=== PATIENT | male | born 1945 | race Caucasian/White ===

== ENCOUNTER 2018-04-01 10:14 | Outpatient (CLI) | payer MEDICARE ==
--- NOTE | 2018-04-01 14:12 | XRAY Report ---
Reason: PAIN IN RIGHT HIP Procedure Date: 04/01/2018 Accession Number: [id number] / [id number] Procedure: XR - Hip w/Pelvis 2-3V RT CPT Code: FULL RESULT: EXAM: RIGHT HIP RADIOGRAPHY EXAM DATE: 04/01/2018 11:24 AM. CLINICAL HISTORY: Pain in right hip. COMPARISON: None. TECHNIQUE: AP pelvis and frog-leg views of each hip. FINDINGS: Bones: No fractures or bone lesion. Joints: End-stage degenerative changes including subchondral cyst formation and sclerosis with [id number] contact is seen in the right hip joint. Moderate loss of joint space with some sclerosis more superiorly is also seen in the left hip joint. There is no subluxation. Soft Tissues: Normal. No soft tissue swelling. 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 RADIA
== END 2018-04-01 10:15 | disposition home or self-care (01) ==
LOC: DI 10:14
PROVIDERS: ATTEND Internal Medicine
DX: M16.11 Unilateral primary osteoarthritis, right hip (principal)

== ENCOUNTER 2020-09-01 15:11 | Outpatient (CLI) | payer MEDICARE ==
[2020-09-01 19:53] LABS: BASOPHILS % (AUTO) 0.5 %; EOSINOPHILS # (AUTO) 0.1 10^3/uL (0.0-0.7); EOSINOPHILS % (AUTO) 2.2 %; HCT - HEMATOCRIT 45.5 % (42.0-52.0); HGB - HEMOGLOBIN 14.9 g/dL (14.0-18.0); LYMPHOCYTES # (AUTO) 1.7 10^3/uL (1.5-3.5); LYMPHOCYTES % (AUTO) 29.7 %; MEAN CORPUSCULAR HEMOGLOBIN 31.8 pg (27.0-31.0); MEAN CORPUSCULAR HGB CONC 32.7 g/dL (32.0-36.0); MEAN CORPUSCULAR VOLUME 97.2 fL (80.0-94.0); MEAN PLATELET VOLUME 9.2 fL (7.4-11.4); MONOCYTES # (AUTO) 0.6 10^3/uL (0.0-1.0); MONOCYTES % (AUTO) 9.6 %; NEUTROPHILS # (AUTO) 3.3 10^3/uL (1.5-6.6); NEUTROPHILS % (AUTO) 57.3 %; PLT - PLATELET COUNT 215 10^3/uL (130-450); RED BLOOD COUNT 4.68 10^6/uL (4.70-6.10); RED CELL DISTRIBUTION WIDTH 12.6 % (12.0-15.0); WHITE BLOOD COUNT 5.8 x10^3/uL (4.8-10.8)
[2020-09-01 20:09] LABS: ALBUMIN 4.2 g/dL (3.2-5.5); CALCIUM 9.4 mg/dL (8.5-10.3); CREATININE 0.8 mg/dL (0.6-1.2); POTASSIUM 4.3 mmol/L (3.5-5.0)
[2020-09-01 20:38] LABS: ESTIMATED AVERAGE GLUCOSE 148 mg/dL (70-100); HEMOGLOBIN A1c% 6.8 % (4.27-6.07)
== END 2020-09-01 15:12 | disposition home or self-care (01) ==
LOC: LAB.S 15:11
PROVIDERS: ATTEND Orthopaedic Surgery
DX: Z01.812 Encounter for preprocedural laboratory examination (principal)
CPT/HCPCS: 36415; 80048; 82040; 83036; 84134; 85025

== ENCOUNTER 2022-12-19 09:35 | Outpatient (CLI) | payer MEDICARE ==
--- NOTE | 2022-12-19 11:45 | XRAY Report ---
PROCEDURE: Lumbar Spine 2 View INDICATIONS: LOW BACK PAIN TECHNIQUE: 3 views of the lumbar spine were acquired. COMPARISON: None. FINDINGS: Bones: 5 cac-saz-oahffui vertebrae are present. There is normal bony alignment. No vertebral body compression fractures. No suspicious bony lesions. There is mild diffuse degenerative disc disease noted all levels throughout the patient's lumbar spine. Diffuse osteopenia is present. Soft tissues: Overlying bowel gas pattern is normal. No suspicious soft tissue calcifications. Ath erosclerotic vascular calcifications are noted within the abdominal aorta. IMPRESSION: 1. No evidence for acute osseous abnormality involving the lumbar spine. 2. Mild diffuse degenerative disc disease noted at all levels. 3. Diffuse osteopenia. 4. Atherosclerotic vascular calcifications. Reviewed by: Gonzalo Monteiro MD on 12/19/2022 11:43 AM [facility] Approved by: Gonzalo Monteiro MD on 12/19/2022 11:43 AM PST Station ID: [id number]
--- NOTE | 2022-12-19 11:45 | XRAY Report ---
PROCEDURE: Sacrum/Coccyx INDICATIONS: LOW BACK PAIN TECHNIQUE: 2 views of the sacrum and coccyx acquired. COMPARISON: None. FINDINGS: Bones: No fractures or dislocations. No suspicious bony lesions. There is diffuse osteopenia prese nt. Soft tissues: Visualized bowel gas pattern is normal. No suspicious soft tissue densities. IMPRESSION: No acute bony abnormality. Diffuse osteopenia. Reviewed by: Gonzalo Monteiro MD on 12/19/2022 11:44 AM PST Approved by: Gonzalo Monteiro MD on 12/19/2022 11:44 AM PST Station ID: [id number]
== END 2022-12-19 09:36 | disposition home or self-care (01) ==
LOC: DI.S 09:35
PROVIDERS: ATTEND Nurse Practitioner Family
DX: M85.89 Other specified disorders of bone density and structure, multiple sites (principal); M51.36 Other intervertebral disc degeneration, lumbar region; I70.0 Atherosclerosis of aorta

== ENCOUNTER 2022-12-28 08:00 | Outpatient (CLI) | payer MEDICARE | END 2022-12-28 23:59 | disposition home or self-care (01) | LOC: LAB.S 08:00 | PROVIDERS: ATTEND Emergency Medicine | DX: H53.8 Other visual disturbances (principal); R42 Dizziness and giddiness | CPT/HCPCS: 82962 ==

== ENCOUNTER 2022-12-28 19:46 | Outpatient (CLI) | payer MEDICARE | END 2022-12-28 19:47 | disposition critical access hospital (66) | LOC: EMS 19:46 | DX: I95.1 Orthostatic hypotension (principal) | CPT/HCPCS: A0425; A0427 ==

== ENCOUNTER 2022-12-28 20:21 | Emergency (ER) | payer MEDICARE ==
[2022-12-28] MEDS ORDERED: SODIUM CHLORIDE 0.9% 1,000 ML IV STA (20:32)
--- NOTE | 2022-12-28 20:35 | ED Physician Documentation ---
PD HPI SYNCOPE - Stated complaint Stated Complaint: DIZZINESS - Chief complaint Chief Complaint: Neuro - History obtained from History obtained from: Patient, EMS - Additional information Additional information: 77-year-old male with history of jig-vsdvlyx-kprfdexbe diabetes, hypertension, A-fib on Xarelto presents by EMS from the walk-in clinic for dizziness. Patient has a history of orthostatic hypotension. He states that he was getting out of his chair to fix the VCR when he felt very off balance and lightheaded, similar to his previous orthostatic events. He measured his blood pressure at home and the machine was having difficulty measuring her blood pressure, so he decided to go to the walk-in clinic. At the walk-in clinic patient had positive orthostatic vital signs, but because of the change in blood pressure and heart rate 911 was called for evaluation. Patient was started on normal saline and transferred for further evaluation. On arrival patient resting comfortably, denies complaints, states he feels back to normal. Last saw cardiology 1 year ago for his orthostatic issues. Reports unremarkable workup through cardiology Review of Systems Constitutional: denies: Fever, Chills GI: denies: Abdominal Pain, Nausea, Vomiting Neurologic: reports: Near syncope. denies: Generalized weakness, Focal weakness, Difficulty speaking, Syncope, Seizure, Confused, Headache, Head injury, LOC PD PAST MEDICAL HISTORY - Past Medical History Cardiovascular: Hypertension, Coronary artery disease, Deep vein thrombosis, Pulmonary embolism, Valve disorder Respiratory: Shortness of breath Endocrine/Autoimmune: Type 2 diabetes : Benign prostate hypertrophy Musculoskeletal: Osteoarthritis, Chronic back pain - Past Surgical History Ortho: Hip replacement, Spine surgery - Present Medications Home Medications: Ambulatory Orders Medication Instructions Recorded Confirmed Ascorbic Acid [Vitamin C] 2,000 mg PO DAILY 05/29/22 12/28/22 Atorvastatin [Lipitor] 20 mg PO HS 05/29/22 12/28/22 Cholecalciferol (Vitamin D3) 125 mcg PO DAILY 05/29/22 12/28/22 [D3-5000] Cinnamon Bark Extract [Cinnamon 2,000 mg PO DAILY 05/29/22 12/28/22 Extract] Cyanocobalamin (Vitamin B-12) 1,000 mcg PO DAILY 05/29/22 12/28/22 [Vitamin B-12] Empagliflozin [Jardiance] 10 mg PO DAILY 05/29/22 12/28/22 Losartan Potassium 25 mg PO DAILY 05/29/22 12/28/22 Magnesium Oxide [Magnesium] 500 mg PO DAILY 05/29/22 12/28/22 Multivitamin 1 each PO DAILY 05/29/22 12/28/22 Rivaroxaban [Xarelto] 20 mg PO DAILY 05/29/22 12/28/22 Tamsulosin [Flomax] 0.4 mg PO DAILY 05/29/22 12/28/22 Metoprolol Succinate [Kapspargo 25 mg PO DAILY 12/28/22 12/28/22 Sprinkle] - Allergies Allergies/Adverse Reactions: Allergies Allergy/AdvReac Type Severity Reaction Status Date / Time metformin AdvReac dyspnea Verified 12/28/22 20:41 PD ED PE NORMAL - Vitals Vital signs reviewed: Yes - General General: Alert and oriented X 3, No acute distress, Well developed/nourished - HEENT HEENT: Atraumatic - Neck Neck: Supple, no meningeal sign - Cardiac Cardiac: No murmur, Strong equal pulses, Other (irregularly irregular) - Respiratory Respiratory: No respiratory distress, Clear bilaterally - Abdomen Abdomen: Soft, Non tender, Non distended - Derm Derm: Normal color, Warm and dry, No rash - Extremities Extremities: No deformity, No tenderness to palpate, Normal ROM s pain, No edema - Neuro Neuro: Alert and oriented X 3, [employer] 2-12 intact, No motor deficit, Normal speech - Psych Psych: Normal mood, Normal affect Results - Vitals Vitals: Vital Signs - 24 hr 12/28/22 12/28/22 20:34 22:15 Temperature 36.3 C L 36.7 C Heart Rate 82 68 Respiratory 15 14 Rate Blood Pressure 138/73 H 122/81 H O2 Saturation 98 95 Oxygen O2 Source Room air - Labs Labs: Laboratory Tests 12/28/22 12/28/22 12/28/22 20:36 20:36 20:36 WBC 6.6 RBC 4.65 L Hgb 14.9 Hct 45.4 MCV 97.6 H MCH 32.0 H MCHC 32.8 RDW 13.2 Plt Count 157 MPV 9.1 Neut # (Auto) 4.9 Lymph # (Auto) 1.0 L [place] # (Auto) 0.5 Eos # (Auto) 0.1 Baso # (Auto) 0.0 Absolute Nucleated RBC 0.00 Nucleated RBC % 0.0 PT 15.5 H INR 1.5 H Sodium 138 Potassium 4.2 Chloride 106 Carbon Dioxide 27 Anion Gap 5.0 L BUN 22 H Creatinine 0.9 Estimated GFR (MDRD) 82 L Glucose 124 H Calcium 9.3 Total Bilirubin 0.4 AST 17 ALT 17 Alkaline Phosphatase 103 Troponin I High Sens Total Protein 6.5 Albumin 4.0 Globulin 2.5 Albumin/Globulin Ratio 1.6 12/28/22 20:36 WBC RBC Hgb Hct MCV MCH MCHC RDW Plt Count MPV Neut # (Auto) Lymph # (Auto) [place] # (Auto) Eos # (Auto) Baso # (Auto) Absolute Nucleated RBC Nucleated RBC % PT INR Sodium Potassium Chloride Carbon Dioxide Anion Gap BUN Creatinine Estimated GFR (MDRD) Glucose Calcium Total Bilirubin AST ALT Alkaline Phosphatase Troponin I High Sens 11.1 Total Protein Albumin Globulin Albumin/Globulin Ratio PD Medical Decision Making - ED course Complexity details: reviewed old records, reviewed results, re-evaluated patient, considered differential, d/w patient, d/w family ED course: Episode of near syncope earlier this evening after getting out of his chair. Patient has longstanding history of these episodes, however tonight and lasted longer than usual. He currently feels back to his baseline, is hemodynamically stable, no acute distress. Laboratory work and imaging is reviewed, unremarkable. EKG shows no concerning findings. CXR unremarkable. Patient has remained asymptomatic since his stay in the department, he has received a liter of IV fluids and states that he is ready to go home. I recommended that the patient reach out to his repair technician again for possible reevaluation, he states has been at least 1 year since his last cardiology evaluation for his orthostatic symptoms.Patient and expressed understanding of the plan and are in agreement this time. All questions answered at the time of discharge. Departure - Departure Disposition: 01 Home, Self Care Clinical Impression: Dizziness Condition: Stable Instructions: ED Hypotension Orthostatic Forms: PCP List Discharge Date/Time: 12/28/22 22:20
[2022-12-28 20:49] LABS: BASOPHILS % (AUTO) 0.3 %; EOSINOPHILS # (AUTO) 0.1 10^3/uL (0.0-0.7); EOSINOPHILS % (AUTO) 1.7 %; HCT - HEMATOCRIT 45.4 % (42.0-52.0); HGB - HEMOGLOBIN 14.9 g/dL (14.0-18.0); LYMPHOCYTES % (AUTO) 15.6 %; MEAN CORPUSCULAR HGB CONC 32.8 g/dL (32.0-36.0); MEAN CORPUSCULAR VOLUME 97.6 fL (80.0-94.0); MEAN PLATELET VOLUME 9.1 fL (7.4-11.4); MONOCYTES # (AUTO) 0.5 10^3/uL (0.0-1.0); MONOCYTES % (AUTO) 7.4 %; NEUTROPHILS # (AUTO) 4.9 10^3/uL (1.5-6.6); NEUTROPHILS % (AUTO) 74.7 %; PLT - PLATELET COUNT 157 10^3/uL (130-450); RED BLOOD COUNT 4.65 10^6/uL (4.70-6.10); RED CELL DISTRIBUTION WIDTH 13.2 % (12.0-15.0); WHITE BLOOD COUNT 6.6 x10^3/uL (4.8-10.8)
[2022-12-28 20:58] LABS: INR 1.5 (0.8-1.2); PT - PROTHROMBIN TIME 15.5 secs (9.9-12.6)
[2022-12-28 21:08] LABS: ALBUMIN/GLOBULIN RATIO 1.6 (1.0-2.2); BILIRUBIN,TOTAL 0.4 mg/dL (0.2-1.0); CALCIUM 9.3 mg/dL (8.5-10.3); CREATININE 0.9 mg/dL (0.6-1.3); POTASSIUM 4.2 mmol/L (3.5-4.5); TOTAL PROTEIN 6.5 g/dL (6.4-8.9)
--- NOTE | 2022-12-28 21:11 | XRAY Report ---
PROCEDURE: Chest 1 View X-Ray INDICATIONS: near syncope TECHNIQUE: One view of the chest was acquired. COMPARISON: None. FINDINGS: Surgical changes and devices: None. Lungs and pleura: No pleural effusions or pneumothorax. Lungs are clear. Mediastinum: Mediastinal contours appear normal. Heart size is normal. Bones and chest wall: No suspicious bony lesions. Overlying soft tissues appear unremarkable. IMPRESSION: No acute cardiopulmonary process. Reviewed by: Luis Devi on 12/28/2022 9:09 PM [facility] Approved by: Luis Devi on 12/28/2022 9:09 PM [facility] Station ID: [id number]
[2022-12-28 22:26] VITALS: BP 122/81; O2SAT 95
== END 2022-12-28 22:20 | disposition home or self-care (01) ==
LOC: EDUNIT# → ED 20:21
DX: R42 Dizziness and giddiness (principal); R55 Syncope and collapse
CPT/HCPCS: 36415; 80053; 84484; 85025; 85610; 93005; 99283; 99284